=== PATIENT | female | born 1935 | race Caucasian/White ===

== ENCOUNTER 2024-01-08 08:38 | Day surgery (SDC) | payer MEDICARE, SELFPAY ==
[2024-01-04 08:36] VITALS: BMI 27.1
--- NOTE | 2024-01-04 14:43 | P.CONAN_ITS ---
Documented by User: Chari Hartmann NP 01/05/24 09:08 HPI - Anesthesia Eval Consult details Narrative: 88yo F for Right Cataract Extraction IOL Insertion No previous cataract on record [facility] Past Medical History Medical History (Updated 01/04/24 @ 08:38 by Ade Mcmahon, JENIFER) Anemia of chronic disease Hyperparathyroidism Osteopenia Vitamin B 12 deficiency Cataract Chronic renal insufficiency Thyroid disease GERD (gastroesophageal reflux disease) Murmur HTN (hypertension) Surgical History Surgical History (Updated 01/01/24 @ 16:44 by Ade Mcmahon, JENIFER) History of carpal tunnel release Hx of hysterectomy Social History Social History Advance Directives: No Advance Directives Information Provided: Yes Meds Allergies Allergy/AdvReac Type Severity Reaction Status Date / Time Penicillins Allergy Unknown Verified 01/01/24 16:42 Home Medications ?Medication ?Instructions ?Recorded ?Confirmed ?Last Taken ?Type amlodipine 5 mg tablet 5 mg PO DAILY 01/01/24 01/01/24 01/08/24 History cholecalciferol (vitamin D3) 25 25 mcg PO DAILY 01/01/24 01/01/24 Unknown History mcg (1,000 unit) tablet cyanocobalamin (vitamin B-12) 1,000 mcg PO 3XW 01/01/24 01/01/24 Unknown History 1,000 mcg tablet ferrous sulfate 325 mg (65 mg 325 mg PO DAILY 01/01/24 01/01/24 Unknown History iron) tablet (FeroSul) folic acid 1 mg tablet 1 mg PO DAILY 01/01/24 01/01/24 Unknown History levothyroxine 75 mcg tablet 75 mcg PO DAILY 01/01/24 01/01/24 Unknown History losartan 50 mg tablet 50 mg PO DAILY 01/01/24 01/01/24 01/08/24 History omeprazole 20 mg tablet,delayed 20 mg PO DAILY 01/01/24 01/01/24 Unknown History release Exam Height,Weight and Vital Signs: Height 5 ft 4 in Weight 71.7 kg Assessment and Plan Assessment Anesthesia Assessment: Chart Reviewed Documented by User: Niraj Pulliam MD 01/08/24 10:08 [facility] Past Medical History Medical History (Updated 01/04/24 @ 08:38 by Ade Mcmahon, JENIFER) Anemia of chronic disease Hyperparathyroidism Osteopenia Vitamin B 12 deficiency Cataract Chronic renal insufficiency Thyroid disease GERD (gastroesophageal reflux disease) Murmur HTN (hypertension) Family History Family history of problems with anesthesia: No Surgical History Surgical History (Updated 01/01/24 @ 16:44 by Ade Mcmahon RN) History of carpal tunnel release Hx of hysterectomy History of Problems with Anesthesia: No Social History Social History Advance Directives: No Advance Directives Information Provided: Yes Meds Allergies Allergy/AdvReac Type Severity Reaction Status Date / Time Penicillins Allergy Unknown Verified 01/01/24 16:42 Home Medications ?Medication ?Instructions ?Recorded ?Confirmed ?Last Taken ?Type amlodipine 5 mg tablet 5 mg PO DAILY 01/01/24 01/01/24 01/08/24 History cholecalciferol (vitamin D3) 25 25 mcg PO DAILY 01/01/24 01/01/24 Unknown History mcg (1,000 unit) tablet cyanocobalamin (vitamin B-12) 1,000 mcg PO 3XW 01/01/24 01/01/24 Unknown History 1,000 mcg tablet ferrous sulfate 325 mg (65 mg 325 mg PO DAILY 01/01/24 01/01/24 Unknown History iron) tablet (FeroSul) folic acid 1 mg tablet 1 mg PO DAILY 01/01/24 01/01/24 Unknown History levothyroxine 75 mcg tablet 75 mcg PO DAILY 01/01/24 01/01/24 Unknown History losartan 50 mg tablet 50 mg PO DAILY 01/01/24 01/01/24 01/08/24 History omeprazole 20 mg tablet,delayed 20 mg PO DAILY 01/01/24 01/01/24 Unknown History release Exam Airway Mallampati Class: II TM Dist: <=3cm Neck ROM: Full Loose/Missing/Broken Teeth: No Heart: rrr Lungs: cta Assessment and Plan Final Anesthetic Review Family History of Problems with Anesthesia: No History of Problems with Anesthesia: No NPO: Yes ASA Class: III Final Preanesthetic Review: No Changes in Pt Med Stat, Meds/Allgs Chart Reviewed, Consent Obtained/Reviewed and Anes Risks/Benef Reviewed Patient Risk: Intermediate Procedure Risk: Low Anesthetic Plan Anesthetic Plan: MAC: Disposition: Standard PACU
[2024-01-08 10:03] VITALS: BMI 26.9
[2024-01-08 10:07] VITALS: BP 157/74; PULSE 74; RESP 18; TEMP 36.2; O2SAT 99; BMI 26.9
[2024-01-08] MEDS: Lactated Ringers 500 ML 50 ML IV (10:20)
[2024-01-08] MEDS: Tetracaine HCl/PF 0.5% Oph Sol 4 ML DROPS 1 DROP EYE-RIGHT (10:21)
[2024-01-08] MEDS: Phenylephrine HCL 2.5% Oph SoL 2 ML BOTTLE 1 DROP EYE-RIGHT ×3 (10:22→10:28)
[2024-01-08] MEDS: Tropicamide 1 % Ophth Sol 3 ML BTL 1 DROP EYE-RIGHT ×3 (10:22→10:27)
[2024-01-08] MEDS: Ketorolac Tromethamine 0.5% Op 10 ML DROPS 1 DROP EYE-RIGHT ×3 (10:22→10:28)
[2024-01-08] MEDS: Cyclopentolate 1 % Ophth Sol 2 ML DRPBTL 1 DROP EYE-RIGHT ×3 (10:23→10:28)
[2024-01-08 10:30] VITALS: BP 157/74; PULSE 74; RESP 18; TEMP 36.2; O2SAT 99
--- NOTE | 2024-01-08 10:59 | P.PCNO_ITS ---
Ophthalmology Procedure Procedure Date of Service: 01/08/24 Ophthalmology Viscoelastic: Healon Duet Dual Pack Pro Ophthalmology Lenses: IOL Acrysof MP - MA60AC (22.5) Procedure Notes: PREOPERATIVE DIAGNOSIS: Decreased visual acuity right eye secondary to cataract POSTOPERATIVE DIAGNOSIS: Same PROCEDURE: Right cataract extraction with intraocular lens insertion SURGEON: Matias Abraham M.D. ANESTHESIA: Topical/MAC ESTIMATED BLOOD LOSS: None COMPLICATIONS: None After obtaining informed consent, the patient was brought to the operating room suite and placed in the supine position. After adequate sedation per anesthesia, topical drops of Tetracaine were given to the right eye. The eye was then prepped and draped in the usual sterile fashion. The operating room microscope was then positioned over the operative eye and a lid speculum placed. A paracentesis was created. Viscoelastic was then instilled into the anterior chamber. A three plane incision was then created temporally, utilizing a 2.85 mm keratome. Capsulotomy forceps were then utilized to create a circular tear capsulotomy. Hydrodissection and hydrodelineation were carried out until adequate mobilization of the nucleus occurred. Phacoemulsification was then utilized to remove the dense central nu cleus followed by removal of the cortical material utilizing the automated aspiration irrigation unit. Viscoelastic was instilled into the posterior capsular bag followed by placement of a posterior chamber intraocular lens without difficulty. The residual Viscoelastic was then removed utilizing the automated IA machine. The wound was checked and found to be watertight. The patient tolerated the procedure well and the lid speculum was removed. Intracameral injection of Vigamox 0.1 mL followed by a subtenon injection of Kenalog-40 0.2 mL were administered. The patient will be seen in the a.m.
--- NOTE | 2024-01-08 10:59 | MHC.SHP ---
Pre-Procedural Eval Section A - 24 Hr Update-Section A only Date of Service: 01/08/24 The patient is an INPATIENT: No Changes since office visit: No Cold of Flu in the past 2 weeks, No New Medical Problems, No Changes in Medication and No Patient answered all questions The patient has been examined within 24 hours of the surgical procedure. The History & Physical has been completed within 30 days and I have reviewed it.: Yes Section B - Complete if H&P > 30 days Chief Complaint: Age-related nuclear cataract, right eye Allergies: Allergies Allergy/AdvReac Type Severity Reaction Status Date / Time Penicillins Allergy Unknown Verified 01/01/24 16:42 Plan Diagnosis/Plan: Unchanged I have reviewed the history and physical and performed a pertinent physical examination on my patient. No changes have occurred unless specified. Time Spent With Patient Time: Total time managing care of this patient today ____ minutes.
[2024-01-08 11:26] VITALS: BP 129/62; PULSE 63; RESP 18; TEMP 37.2; O2SAT 100
[2024-01-08 11:41] VITALS: BP 160/66; PULSE 74; RESP 18; TEMP 37.1; O2SAT 99
== END 2024-01-08 11:52 | disposition home or self-care (01) ==
PROVIDERS: PCP Internal Medicine; Visit Provider Ophthalmology
PROC: (CPT 66985; principal; 2024-01-08 10:00)
DX: H25.11 Age-related nuclear cataract, right eye (principal); H52.4 Presbyopia; H18.413 Arcus senilis, bilateral; I10 Essential (primary) hypertension; E07.9 Disorder of thyroid, unspecified; M81.0 Age-related osteoporosis without current pathological fracture; Z79.899 Other long term (current) drug therapy; Z88.0 Allergy status to penicillin; Z88.5 Allergy status to narcotic agent
CPT/HCPCS: 66984; J2250; J3010; J3301; V2630

== ENCOUNTER 2024-01-22 10:47 | Day surgery (SDC) | payer MEDICARE, SELFPAY ==
[2024-01-04 08:42] VITALS: BMI 27.1
--- NOTE | 2024-01-19 09:40 | HO.ANESPROP2 ---
Documented by User: Chari Hartmann NP 01/19/24 09:40 HPI - Anesthesia Eval Consult details Narrative: 88yo F for Left Cataract Extraction IOL Insertion PCP cleared Right eye 01/08/24: Fent 50, Midaz 0.5 PMFSH Past Medical History Medical History (Updated 01/04/24 @ 08:38 by Ade Mcmahon, JENIFER) Anemia of chronic disease Hyperparathyroidism Osteopenia Vitamin B 12 deficiency Cataract Chronic renal insufficiency Thyroid disease GERD (gastroesophageal reflux disease) Murmur HTN (hypertension) Family History Family history of problems with anesthesia: No Surgical History Surgical History (Updated 01/01/24 @ 16:44 by Ade Mcmahon, JENIFER) History of carpal tunnel release Hx of hysterectomy History of Problems with Anesthesia: No Social History Social History Patient Tobacco Use Status: Never used Tobacco Advance Directives: No Advance Directives Information Provided: Yes Meds Allergies Allergy/AdvReac Type Severity Reaction Status Date / Time Penicillins Allergy Unknown Verified 01/01/24 16:42 Home Medications ?Medication ?Instructions ?Recorded ?Confirmed ?Last Taken ?Type amlodipine 5 mg tablet 5 mg PO DAILY 01/01/24 01/22/24 01/22/24 03:00 History cholecalciferol (vitamin D3) 25 25 mcg PO DAILY 01/01/24 01/22/24 Unknown History mcg (1,000 unit) tablet cyanocobalamin (vitamin B-12) 1,000 mcg PO 3XW 01/01/24 01/22/24 Unknown History 1,000 mcg tablet ferrous sulfate 325 mg (65 mg 325 mg PO DAILY 01/01/24 01/22/24 Unknown History iron) tablet (FeroSul) folic acid 1 mg tablet 1 mg PO DAILY 01/01/24 01/22/24 Unknown History levothyroxine 75 mcg tablet 75 mcg PO DAILY 01/01/24 01/22/24 Unknown History losartan 50 mg tablet 50 mg PO DAILY 01/01/24 01/22/24 01/22/24 03:00 History omeprazole 20 mg tablet,delayed 20 mg PO DAILY 01/01/24 01/22/24 Unknown History release Exam Height,Weight and Vital Signs: Height 5 ft 4 in Weight 71.7 kg Assessment and Plan Assessment Anesthesia Assessment: Chart Reviewed Final Anesthetic Review Family History of Problems with Anesthesia: No History of Problems with Anesthesia: No Documented by User: Rhonda Chen MD 01/22/24 12:11 [facility] Past Medical History Medical History (Updated 01/04/24 @ 08:38 by Ade Mcmahon, JENIFER) Anemia of chronic disease Hyperparathyroidism Osteopenia Vitamin B 12 deficiency Cataract Chronic renal insufficiency Thyroid disease GERD (gastroesophageal reflux disease) Murmur HTN (hypertension) Surgical History Surgical History (Updated 01/01/24 @ 16:44 by Ade Mcmahon RN) History of carpal tunnel release Hx of hysterectomy Social History Social History Patient Tobacco Use Status: Never used Tobacco Advance Directives: No Advance Directives Information Provided: Yes Meds Allergies Allergy/AdvReac Type Severity Reaction Status Date / Time Penicillins Allergy Unknown Verified 01/01/24 16:42 Home Medications ?Medication ?Instructions ?Recorded ?Confirmed ?Last Taken ?Type amlodipine 5 mg tablet 5 mg PO DAILY 01/01/24 01/22/24 01/22/24 03:00 History cholecalciferol (vitamin D3) 25 25 mcg PO DAILY 01/01/24 01/22/24 Unknown History mcg (1,000 unit) tablet cyanocobalamin (vitamin B-12) 1,000 mcg PO 3XW 01/01/24 01/22/24 Unknown History 1,000 mcg tablet ferrous sulfate 325 mg (65 mg 325 mg PO DAILY 01/01/24 01/22/24 Unknown History iron) tablet (FeroSul) folic acid 1 mg tablet 1 mg PO DAILY 01/01/24 01/22/24 Unknown History levothyroxine 75 mcg tablet 75 mcg PO DAILY 01/01/24 01/22/24 Unknown History losartan 50 mg tablet 50 mg PO DAILY 01/01/24 01/22/24 01/22/24 03:00 History omeprazole 20 mg tablet,delayed 20 mg PO DAILY 01/01/24 01/22/24 Unknown History release Exam Airway Mallampati Class: II TM Dist: >3cm Neck ROM: Full Heart: rrr Lungs: cta Assessment and Plan Assessment Anesthesia Assessment: Anesthesia Plan Discussed Final Anesthetic Review NPO: Yes ASA Class: III Final Preanesthetic Review: No Changes in Pt Med Stat, Meds/Allgs Chart Reviewed and Consent Obtained/Reviewed Patient Risk: Low Anesthetic Plan Anesthetic Plan: MAC: Disposition: Standard PACU
[2024-01-22] MEDS: Tetracaine HCl/PF 0.5% Oph Sol 4 ML DROPS 1 DROP EYE-LEFT (11:53)
[2024-01-22] MEDS: Cyclopentolate 1 % Ophth Sol 2 ML DRPBTL 1 DROP EYE-LEFT ×3 (12:01→12:22)
[2024-01-22] MEDS: Ketorolac Tromethamine 0.5% Op 10 ML DROPS 1 DROP EYE-LEFT ×3 (12:02→12:23)
[2024-01-22 12:05] VITALS: BP 167/66; PULSE 62; RESP 16; TEMP 37; O2SAT 100
[2024-01-22] MEDS: Tropicamide 1 % Ophth Sol 3 ML BTL 1 DROP EYE-LEFT ×3 (12:05→12:26)
[2024-01-22] MEDS: Phenylephrine HCL 2.5% Oph SoL 2 ML BOTTLE 1 DROP EYE-LEFT ×3 (12:08→12:28)
[2024-01-22] MEDS: Lactated Ringers 500 ML 50 ML IV (12:27)
--- NOTE | 2024-01-22 13:07 | MHC.SHP ---
Pre-Procedural Eval Section A - 24 Hr Update-Section A only Date of Service: 01/22/24 The patient is an INPATIENT: No Changes since office visit: No Cold of Flu in the past 2 weeks, No New Medical Problems, No Changes in Medication and No Patient answered all questions The patient has been examined within 24 hours of the surgical procedure. The History & Physical has been completed within 30 days and I have reviewed it.: Yes Section B - Complete if H&P > 30 days Chief Complaint: Age-related nuclear cataract, left eye Allergies: Allergies Allergy/AdvReac Type Severity Reaction Status Date / Time Penicillins Allergy Unknown Verified 01/01/24 16:42 Plan Diagnosis/Plan: Unchanged I have reviewed the history and physical and performed a pertinent physical examination on my patient. No changes have occurred unless specified. Time Spent With Patient Time: Total time managing care of this patient today ____ minutes.
--- NOTE | 2024-01-22 13:08 | HO.PNOPHT ---
Ophthalmology Procedure Procedure Date of Service: 01/22/24 Ophthalmology Viscoelastic: Healon Duet Dual Pack Pro Ophthalmology Lenses: IOL Acrysof MP - MA60AC (22) Procedure Notes: PREOPERATIVE DIAGNOSIS: Decreased visual acuity left eye secondary to cataract POSTOPERATIVE DIAGNOSIS: Same PROCEDURE: Left cataract extraction with intraocular lens insertion SURGEON: Matias Abraham M.D. ANESTHESIA: Topical/MAC ESTIMATED BLOOD LOSS: None COMPLICATIONS: None After obtaining informed consent, the patient was brought to the operation room suite and placed in the supine position. After adequate sedation per anesthesia, topical drops of Tetracaine were given to the left eye. The eye was then prepped and draped in the usual sterile fashion. The operating room microscope was then positioned over the operative eye and a lid speculum placed. A paracentesis was created. Viscoelastic was then instilled into the anterior chamber. A three plane incision was then created temporally, utilizing a 2.85 mm keratome. Capsulotomy forceps were then utilized to create a circular tear capsulotomy. Hydrodissection and hydrodelineation were carried out until adequate mobilization of the nucleus occurred. Phacoemulsification was then utilized to remove the dense central nucleus followed by removal of the cortical material utilizing the automated aspiration irrigation unit. Viscoat elastic was instilled into the posterior capsular bag followed by placement of a posterior chamber intraocular lens without difficulty. The residual Viscoat elastic was then removed utilizing the automated IA machine. The wound was check and found to be watertight. The patient tolerated the procedure well and the lid speculum was removed. Intracameral injection of Vigamox 0.1 mL followed by a subtenon injection of Kenalog-40 0.2 mL were administered. The patient will be seen in the a.m.
[2024-01-22 13:34] VITALS: BP 147/61; PULSE 73; RESP 17; TEMP 36.6; O2SAT 99
== END 2024-01-22 13:37 | disposition home or self-care (01) ==
PROVIDERS: PCP Internal Medicine; Visit Provider Ophthalmology
PROC: (CPT 66985; principal; 2024-01-22 11:10)
DX: H25.12 Age-related nuclear cataract, left eye (principal); H52.4 Presbyopia; H18.413 Arcus senilis, bilateral; I10 Essential (primary) hypertension; E07.9 Disorder of thyroid, unspecified; M81.0 Age-related osteoporosis without current pathological fracture; Z79.899 Other long term (current) drug therapy; Z88.0 Allergy status to penicillin; Z88.5 Allergy status to narcotic agent
CPT/HCPCS: 66984; J3010; J3301; V2630